=== PATIENT | male | born 1980 | race Hispanic/Latino ===

== ENCOUNTER 2020-02-23 14:33 | Emergency (ER) | payer OTHER ==
--- NOTE | 2020-02-23 17:47 | RAD ---
PORTABLE CHEST: 02/23/20 An AP portable film at 1523 shows a normal sized heart and clear lungs. No pulmonary infiltrates, eff usions, or congestive changes were seen. The mediastinum was unremarkable. There was no current findi ng of pneumonia. IMPRESSION: No acute findings. POS: HOME
[2020-02-24 14:21] LABS: SARS-CoV-2 MS2 Positive; SARS-CoV-2 N Gene Negative; SARS-CoV-2 S Gene Negative; SARS-CoV-2 by NAA Not Detected (NotDetected); SARS-CoV-2 orf1ab Negative
== END 2020-02-23 16:45 | disposition home or self-care (01) ==
LOC: BURERS 14:33
DX: B34.9 Viral infection, unspecified (principal); Z20.828 Contact with and (suspected) exposure to other viral communicable diseases; F17.210 Nicotine dependence, cigarettes, uncomplicated
CPT/HCPCS: 71045; 87635; 87804; U0003

== ENCOUNTER 2021-04-14 11:16 | Emergency (ER) | payer SELFPAY | END 2021-04-14 12:43 | disposition home or self-care (01) | LOC: BURERS 11:16 | DX: S83.411A Sprain of medial collateral ligament of right knee, initial encounter (principal); M23.91 Unspecified internal derangement of right knee; F17.210 Nicotine dependence, cigarettes, uncomplicated; X50.9XXA Other and unspecified overexertion or strenuous movements or postures, initial encounter | CPT/HCPCS: 99283 ==